=== PATIENT | female | born 1990 | race African-American/Black ===

== ENCOUNTER 2019-02-01 22:25 | Emergency (ER) | payer SELFPAY ==
[~2019-02-01] VITALS: Ht 172.7 cm; Wt 148.3 kg
--- OUTSIDE RECORDS SUMMARY | 2019-02-01 22:27 | XMS REPORT ---
Author Author [facility] Address Unknown Phone Unavailable Care Team Providers Care Semiconductor Processing Technician Name Role Phone Unavailable Unavailable Problems This patient has no known problems. Allergies, Adverse Reactions, Alerts This patient has no known allergies or adverse reactions. Medications This patient has no known medications. Encounters Start Date/Time End Date/Time Encounter Type Admission Type Attending Clinicians Care Facility Care Department Encounter ID 2018-11-04 21:37:00 2018-11-04 21:37:00 Emergency E [facility] [id number]
--- OUTSIDE RECORDS SUMMARY | 2019-02-01 22:27 | XMS REPORT | Clinical Summary ---
Author Author [facility] Organization [facility] [place] [facility] Address Unknown Phone Unavailable Care Team Providers Care Labelling Machine Operator Name Role Phone Asked, No Pcp PCP Unavailable Allergies No Known Allergies Medications Not on file Active Problems Not on file Social History Date Tobacco Use Types Packs/Day Years Used Current Every Day Smoker Cigarettes Alcohol Use Drinks/Week oz/Week Comments Yes occasional Sex Assigned at Date Recorded Not on file Industry Job Start Date Occupation Not on file Not on file Not on file Travel End Travel History Travel Start No recent travel history available. Last Filed Vital Signs Not on file Plan of Treatment Health Maintenance Due Date Last Done Comments INFLUENZA VACCINE 01/21/2019 Results Not on fileafter 01/31/2018 Advance Directives Patient has advance care planning documents on file. For more information, markus witt contact: Samuel Haines [address] [place] [address]
[2019-02-01] MEDS ORDERED: SODIUM CHLORIDE 0.9% 1000ML 1,000 ML IV STA (22:40)
[2019-02-01] MEDS ORDERED: ONDANSETRON HCL INJ 2MG/ML 2ML 2 MG/ML VIAL IV ONE (22:45)
[2019-02-01] MEDS ORDERED: FAMOTIDINE 20 MG/2 ML VIAL IV ONE ×2 (22:45→23:10)
[2019-02-01] MEDS ORDERED: ONDANSETRON HCL INJ 2MG/ML 2ML 2 MG/ML VIAL ONE (23:10)
[2019-02-01] MEDS ORDERED: SODIUM CHLORIDE 0.9% 1000ML 1,000 ML ONE (23:10)
--- NOTE | 2019-02-01 23:22 | Diagnostic Imaging Report ---
Frontal and lateral views of the chest. HISTORY: Chest pain COMPARISON: None available. DISCUSSION: Soft tissue attenuation partially limits sensitivity of the exam. Lungs: Low lung volumes result in bibasilar vascular crowding, accentuation of the pulmonary interstitial markings, central pulmonary vasculature, and the cardiac silhouette. Allowing for these limitations, the findings are as follows: No evidence of a consolidative pneumonia or pulmonary alveolar edema. Pleura: No pleural effusion or pneumothorax. Heart and mediastinum: The cardiomediastinal silhouette appear(s) unremarkable. Bones and soft tissues: Appear unremarkable. IMPRESSION: No acute radiographic abnormality. Signed by: Dr. Charlie George D.O., M.M.M. on 02/01/2019 11:19 PM
[2019-02-01] MEDS ORDERED: ACETAMINOPHEN 325 MG TAB ONE (23:38)
[2019-02-01 23:53] VITALS: BP 147/85
== END 2019-02-01 23:55 | disposition home or self-care (01) ==
LOC: FSED 22:25
DX: R07.89 Other chest pain (principal); R11.2 Nausea with vomiting, unspecified; K21.9 Gastro-esophageal reflux disease without esophagitis; I10 Essential (primary) hypertension; E66.01 Morbid (severe) obesity due to excess calories; F17.210 Nicotine dependence, cigarettes, uncomplicated
CPT/HCPCS: 71046; 80053; 81003; 81025; 82553; 83880; 84484; 85025; 85379; 93005; 96374; 96375; 99284; J2405; J7030